=== PATIENT | female | born 1995 | race African-American/Black ===

== ENCOUNTER 2023-04-17 17:22 | Emergency (ER) | payer OTHER ==
[~2023-04-17] VITALS: Ht 154.9 cm; Wt 74.8 kg
[2023-04-17 17:22] VITALS: BP_SYST 124
--- NOTE | 2023-04-17 17:23 | NUR ---
BROUGHT BACK TO BED #3 AND TRIAGED. REPORT GIVEN TO BENJAMIN
[2023-04-17] MEDS ORDERED: MAG-AL HYDROX/SIMETH 30 ML UDC PO ONE (18:15)
[2023-04-17] MEDS ORDERED: FAMOTIDINE 20 MG TABLET PO ONE (18:15)
[2023-04-17 18:36] LABS: BASOPHILS % (AUTO) 0.7 % (0.0-2.0); EOSINOPHILS # (AUTO) 0.1 K/uL (0.0-0.4); EOSINOPHILS % (AUTO) 0.9 % (0.0-4.0); HEMATOCRIT 37.8 % (36-48); LYMPHOCYTES # (AUTO) 1.5 K/uL (1.0-5.5); LYMPHOCYTES % (AUTO) 23.9 % (20.5-51.5); MEAN CORPUSCULAR HEMOGLOBIN 26 pg (27-31); MEAN CORPUSCULAR HGB CONC 32 % (32-36); MEAN CORPUSCULAR VOLUME 81 fL (79.0-98.0); MONOCYTES # (AUTO) 0.3 K/uL (0.0-1.0); MONOCYTES % (AUTO) 5.1 % (1.7-9.3); NEUTROPHILS # (AUTO) 4.5 K/uL (1.8-7.7); NEUTROPHILS % (AUTO) 69.4 % (40.0-70.0); PLATELET COUNT (AUTO) 218 K/uL (130-430); RED BLOOD CELL COUNT(AUTO) 4.68 MIL/uL (4.2-6.2); RED CELL DISTRIBUTION WIDTH 15.3 % (9.0-15.0); WHITE BLOOD COUNT (AUTO) 6.4 K/uL (4.8-10.8)
[2023-04-17 18:47] LABS: ANION GAP 10 (5-15); CALCIUM 8.6 mg/dL (8.4-11.0); CHLORIDE 103 mmol/L (98-107); CREATININE 0.73 mg/dL (0.55-1.30); GFR AFRICAN AMERICAN 124 mL/min (>90); GLUCOSE 79 mg/dL (70-99); UREA NITROGEN, BLOOD 5 mg/dL (8-21)
[2023-04-17 18:52] LABS: ALANINE AMINOTRANSFERASE 133 U/L (12-78); ALBUMIN 3.9 g/dL (3.4-4.8); ASPARTATE AMINOTRANSFERASE 68 U/L (10-37); LIPASE 51 U/L (73-393); TOTAL BILIRUBIN 0.3 mg/dL (0.0-1.0)
[2023-04-17] MEDS ORDERED: FAMO20TA8 PO (19:34)
--- NOTE | 2023-04-17 19:52 | NUR ---
Patient given written and verbal discharge instructions and verbalizes understanding. ER MD ROWE discussed with patient the results and treatment provided. Patient in stable condition. ID arm band removed. IV catheter removed intact and dressing applied, no active bleeding. Rx of PEPCID given. Patient educated on pain management and to follow up with PMD. Pain Scale . Opportunity for questions provided and answered. Medication side effect fact sheet provided.
== END 2023-04-17 19:59 | disposition home or self-care (01) ==
LOC: SED 17:22
DX: K21.9 Gastro-esophageal reflux disease without esophagitis (principal); R07.2 Precordial pain; M79.602 Pain in left arm; I10 Essential (primary) hypertension; Z79.899 Other long term (current) drug therapy
CPT/HCPCS: 36415; 71045; 80053; 81025; 83690; 84484; 85025; 99284